=== PATIENT | female | born 1975 | race Caucasian/White ===

== ENCOUNTER 2020-01-06 12:24 | Emergency (ER) | payer MEDICAID, OTHER ==
[~2020-01-06] VITALS: Ht 170.2 cm; Wt 109.2 kg
[2020-01-06] MEDS ORDERED: FLUORESCEIN OPHTHALMIC 1 MG STRIP EACHEYE ONE (13:00)
[2020-01-06] MEDS ORDERED: PROPARACAINE OPHTH 0.5%, 15ML EACHEYE ONE (13:00)
[2020-01-06] MEDS ORDERED: PROPARACAINE OPHTH 0.5%, 15ML ONE ×3 (15:53→16:27)
[2020-01-06] MEDS ORDERED: FLUORESCEIN OPHTHALMIC 1 MG STRIP ONE ×2 (15:53→16:25)
--- NOTE | 2020-01-06 15:54 | NUR ---
SIGNAL INSPECTOR: PT AMBULATORY WITH STEADY GAIT TO ROOM AT THIS TIME.
[2020-01-06 17:27] VITALS: BP 122/87
== END 2020-01-06 17:29 | disposition home or self-care (01) ==
LOC: ED 15:38
DX: H10.33 Unspecified acute conjunctivitis, bilateral (principal); H18.823 Corneal disorder due to contact lens, bilateral
CPT/HCPCS: 99283